=== PATIENT | female | born 1970 | race African-American/Black ===

== ENCOUNTER 2023-12-09 16:21 | Emergency (ER) | payer OTHER ==
[~2023-12-09] VITALS: Ht 160 cm; Wt 108.9 kg
[2023-12-09 16:29] VITALS: BP 169/73; PULSE 78; RESP 18; TEMP 98.5; O2SAT 98
[2023-12-09 17:45] LABS: BASOPHILS # (AUTO) 0.1 K/uL (0.00-0.22); BASOPHILS % (AUTO) 0.6 % (0.0-2.0); EOSINOPHILS # (AUTO) 0.1 K/uL (0-0.4); EOSINOPHILS % (AUTO) 0.8 % (0.0-4.0); HEMATOCRIT 40.2 % (36-48); HEMOGLOBIN 13.2 g/dL (12.0-16.0); LYMPHOCYTES # (AUTO) 1.6 K/uL (2.5-16.5); MEAN CORPUSCULAR HEMOGLOBIN 30 pg (27-31); MEAN CORPUSCULAR HGB CONC 33 g/dL (33-37); MEAN CORPUSCULAR VOLUME 91.4 fL (80-94); MONOCYTES # (AUTO) 0.6 K/uL (0.8-1.0); NEUTROPHILS # (AUTO) 9.1 K/uL (1.8-7.7); NEUTROPHILS % (AUTO) 79.6 % (42.2-75.2); PLATELET COUNT (AUTO) 445 K/uL (140-450); RED CELL DISTRIBUTION WIDTH 14.9 % (11.6-13.7); WHITE BLOOD COUNT (AUTO) 11.5 K/uL (4.8-10.8)
[2023-12-09 18:10] LABS: ANION GAP 13.8 (8-16); CALCIUM 8.6 mg/dL (8.5-10.1); CARBON DIOXIDE 26.5 mmol/L (21-32); CREATININE 0.7 mg/dL (0.6-1.3); POTASSIUM 3.3 mmol/L (3.5-5.1); TOTAL BILIRUBIN 0.3 mg/dL (0.0-1.0); TOTAL PROTEIN, SERUM 7.2 g/dL (6.4-8.2)
[2023-12-09 19:07] VITALS: BP 130/81; PULSE 87; O2SAT 97
[2023-12-09] MEDS: KETOROLAC 30 MG/ML VIAL IM ONE (19:42)
[2023-12-09] MEDS: LIDOCAINE 5% 1 EA PATCH TP ONE (19:45)
[2023-12-09] MEDS: ACETAMINOPHEN EXTRA STRENGTH 500 MG TAB PO ONE (19:46)
[2023-12-09 20:34] LABS: BILIRUBIN,URINE 1+ (NEGATIVE); BLOOD, URINE NEGATIVE (NEGATIVE); COLOR,URINE YELLOW (YELLOW); LEUKOCYTE ESTERASE ,URINE TRACE (NEGATIVE); NITRITE, URINE NEGATIVE (NEGATIVE); PROTEIN,URINE TRACE (NEGATIVE); UGLUCOSE NEGATIVE (NEGATIVE); UROBILINOGEN,URINE 0.2 EU/dL (0.2 - 1)
[2023-12-09 20:38] LABS: APPEARANCE,URINE CLOUDY (CLEAR)
[2023-12-09 20:45] LABS: ICTOTEST NEGATIVE (NEGATIVE)
[2023-12-09 20:47] LABS: BACTERIA,URINE 10-30 (MOD) /HPF (None Seen); MUCUS,URINE 1+ /LPF (None Seen); RBC,URINE 0-5 /HPF (0-5); SQUAMOUS EPITHELIAL CELL,UR 4-10 (MOD) /LPF (0-3 (FEW))
[2023-12-09] MEDS ORDERED: CEFP200T20 PO (20:52)
== END 2023-12-09 20:56 | disposition home or self-care (01) ==
LOC: MED 16:21
DX: N12 Tubulo-interstitial nephritis, not specified as acute or chronic (principal); I10 Essential (primary) hypertension; E11.9 Type 2 diabetes mellitus without complications; F41.9 Anxiety disorder, unspecified; Z79.899 Other long term (current) drug therapy; Z88.0 Allergy status to penicillin; Z91.041 Radiographic dye allergy status; Z88.8 Allergy status to other drugs, medicaments and biological substances
CPT/HCPCS: 36415; 80053; 81001; 81025; 83690; 85025; 87086; 99283; J1885